=== PATIENT | female | born 1990 | race Caucasian/White ===

== ENCOUNTER 2022-01-01 06:55 | Outpatient (CLI) | payer OTHER, SELFPAY ==
--- NOTE | 2022-01-01 07:06 | MR_ITS ---
WS: [id number] MRI HEAD WITH CONTRAST WITH ATTENTION TO THE INTERNAL AUDITORY CANALS TECHNIQUE: Sagittal T1, T2 axial, T2 axial flair, axial susceptibility weighted imaging, axial diffus ion weighted images, and coronal T2 images were obtained. Pre and post T1 axial and post T1 coronal i mages. ADC and FSPGR images. Post gadolinium images with attention to the internal auditory canals. A xial fiesta imaging. CLINICAL INFORMATION: ENCOUNTER FOR EXAM OF EARS AND HEARING W/O ABNORMAL FINDINGS COMPARISON: None. FINDINGS: No evidence of restricted diffusion to suggest acute ischemia. Ventricular system and basal cisterns are patent. No suspicious intracranial signal abnormalities. Normal zarate-white differentiation. Gay l posterior fossa. Normal vascular flow voids at the skull base. No extra-axial fluid collections. No evidence of mass or mass effect. Paranasal sinuses and mastoid air cells are well aerated. No hemosi lor on susceptibly weighted images. Proximal 7th and 8th cranial nerves are normal in appearance. No evidence of enhancing IAC or CP angl e mass. Normal optic chiasm and pituitary infundibulum. Normal trigeminal nerve root entry zones. Nor mal cavernous sinuses and Meckel's cave. No abnormal parenchymal enhancement. Normal dural venous sin uses. MR/MR iac's wo/w con* [id number] IMPRESSION: 1. No evidence of restricted diffusion to suggest acute ischemia. 2. No suspicious intracranial signal abnormalities. 3. Proximal 7th and 8th cranial nerves are normal in appearance. No evidence o f enhancing IAC or CP angle mass. 4. No abnormal intracranial enhancement. 5. Paranasal sinuses and mastoid air cells well aerated.
[2022-01-01] MEDS: gadobenate dimeglumine 20 mL vial IV (08:06)
== END 2022-01-01 06:56 | disposition home or self-care (01) ==
LOC: RAD 06:56
PROVIDERS: Family Provider Nurse Practitioner; Visit Provider Specialist
DX: Z01.10 Encounter for examination of ears and hearing without abnormal findings (principal)
CPT/HCPCS: 70553

== ENCOUNTER → 2022-09-17 07:50 | Outpatient (BNVA) | payer OTHER, SELFPAY | PROVIDERS: Family Provider Nurse Practitioner; PCP Family Medicine; Visit Provider Family Medicine | DX: Z13.6 Encounter for screening for cardiovascular disorders (principal) | CPT/HCPCS: 80053; 80061; 84443; 85025 ==

== ENCOUNTER → 2023-05-30 09:50 | Outpatient (BNVA) | payer OTHER, SELFPAY | PROVIDERS: Family Provider Nurse Practitioner; PCP Family Medicine; Visit Provider Nurse Practitioner Family | DX: M25.562 Pain in left knee (principal) | CPT/HCPCS: 73562 ==